=== PATIENT | female | born 1995 | race Caucasian/White ===

== ENCOUNTER 2017-02-15 13:07 | Emergency (ER) | payer BC ==
[~2017-02-15] VITALS: Ht 170.2 cm; Wt 74.8 kg
[2017-02-15 13:11] VITALS: TEMP 36.7; Ht 170.2 cm; Wt 74.8 kg
[2017-02-15] MEDS ORDERED: SODIUM CHLORIDE 0.9% 1000ML 1,000 ML IV STA (13:26)
[2017-02-15] MEDS ORDERED: DROS1TAB24 PO (13:40)
[2017-02-15] MEDS ORDERED: VENL150C56 PO (13:40)
--- NOTE | 2017-02-15 13:41 | EMERGENCY ROOM VISIT NOTE ---
History Report prepared by Ralph: Alyce Stein Under the Supervision of: Dr. Ruby Conroy M.D. First contact with patient: 13:23 Chief Complaint: ABDOMINAL PAIN Stated Complaint: RIGHT SIDED ABD. PAIN, BLOOD IN VOMIT History of Present Illness The patient is a 21 year old female who presents to the Emergency Room with complaints of constant right sided abdominal pain beginning a few months prior to arrival. The patient states that last night she had a vomiting episode and found blood in the vomit. She notes this morning she woke up nauseated but has not vomited today. She is constipated. The patient has been under more stress lately. She was recently diagnosed with IBS with constipation. The patient has been following up with her PCP about the pain and has had lab work, urine samples and an ultrasound done. The patient denies chance of , black or tarry stools. Her LNMP was 3 weeks ago. 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 Review of Systems See HPI for pertinent positives & negatives. A total of 10 systems reviewed and were otherwise negative. Past Medical & Surgical Medical Problems: (1) IBS (irritable bowel syndrome) Family History Cancer Hypertension Social History Smoking Status: Former Smoker Alcohol Use: occasionally Marital Status: single Housing Status: lives alone Occupation Status: employed Current/Historical Medications Scheduled Drospirenone-Ethinyl Estradiol (Ivory), 1 TAB PO HS Omeprazole (Prilosec), 20 MG PO DAILY Senna/Docusate Sod (Senokot S), 1 TAB PO BID Venlafaxine Hcl (Effexor Extended Rel), 1 CAP PO HS Physical Exam Vital Signs Date Time Temp Pulse Resp B/P (MAP) Pulse Ox O2 Delivery O2 Flow Rate FiO2 02/15/17 15:10 72 120/70 100 02/15/17 14:04 60 02/15/17 14:02 60 20 120/74 100 Room Air 02/15/17 13:11 36.7 85 20 120/61 100 Room Air Physical Exam Vital signs reviewed. General: Well-appearing female, in no significant distress. HEENT: No scleral icterus, PERRLA, neck supple. Atraumatic. Cardiovascular: Regular rate and rhythm, no extra sounds. Pulmonary: Clear to auscultation bilaterally, normal work of breathing. Abdomen: Soft, nontender, nondistended, positive bowel sounds. Rectal: Stool guaiac negative. Brown stool. Normal external rectal mucosa. Musculoskeletal: Atraumatic, no peripheral edema. Neurologic: Patient awake alert and oriented x 3 Skin: Warm, dry, no rash Medical Decision & Procedures ER Provider Diagnostic Interpretation: X-ray results as stated below per interpretation by me and the radiologist: ABDOMEN 2VIEW W/PA CHEST RTN CLINICAL HISTORY: vomiting blood COMPARISON STUDY: No previous studies for comparison. FINDINGS: The soft tissues, psoas shadows, renal outlines and intestinal gas pattern appear normal. There is no evidence for bowel obstruction. There is no evidence for free intraperitoneal air. No abnormal abdominal calcifications are seen. A frontal view of the chest was performed and is unremarkable. IMPRESSION: Normal study. Electronically signed by: Flaquito Delacruz M.D. 02/15/2017 2:40 PM Dictated Date/Time: 02/15/2017 2:40 PM Laboratory Results 02/15/17 13:55 Red Blood Count 4.40, Mean Corpuscular Volume 85.5, Mean Corpuscular Hemoglobin 28.4, Mean Corpuscular Hemoglobin Concent 33.2, Mean Platelet Volume 9.8, Neutrophils (%) (Auto) 47.4, Lymphocytes (%) (Auto) 38.6, Monocytes (%) (Auto) 11.3, Eosinophils (%) (Auto) 1.5, Basophils (%) (Auto) 1.0, Neutrophils # (Auto ) 2.78, Lymphocytes # (Auto) 2.26, Monocytes # (Auto) 0.66, Eosinophils # (Auto ) 0.09, Basophils # (Auto) 0.06 02/15/17 13:55 Test 02/15/17 13:25 02/15/17 13:55 Urine Color YELLOW Urine Appearance CLEAR (CLEAR) Urine pH 7.0 (4.5-7.5) Urine Specific [place] 1.027 (1.000-1.030) Urine Protein TRACE (NEG) Urine Glucose (UA) NEG (NEG) Urine Ketones TRACE (NEG) Urine Occult Blood NEG (NEG) Urine Nitrite NEG (NEG) Urine Bilirubin NEG (NEG) Urine Urobilinogen NEG (NEG) Urine Leukocyte Esterase NEG (NEG) Urine WBC (Auto) 1-5 /hpf (0-5) Urine RBC (Auto) 0-4 /hpf (0-4) Urine Hyaline Casts (Auto) 1-5 /lpf (0-5) Urine Epithelial Cells (Auto) >30 /lpf (0-5) Urine Bacteria (Auto) NEG (NEG) White Blood Count 5.86 K/uL (4.8-10.8) Red Blood Count 4.40 M/uL (4.2-5.4) Hemoglobin 12.5 g/dL (12.0-16.0) Hematocrit 37.6 % (37-47) Mean Corpuscular Volume 85.5 fL (80-100) Mean Corpuscular Hemoglobin 28.4 pg (25-34) Mean Corpuscular Hemoglobin Concent 33.2 g/dl (32-36) Platelet Count 336 K/uL (130-400) Mean Platelet Volume 9.8 fL (7.4-10.4) Neutrophils (%) (Auto) 47.4 % Lymphocytes (%) (Auto) 38.6 % Monocytes (%) (Auto) 11.3 % Eosinophils (%) (Auto) 1.5 % Basophils (%) (Auto) 1.0 % Neutrophils # (Auto) 2.78 K/uL (1.4-6.5) Lymphocytes # (Auto) 2.26 K/uL (1.2-3.4) Monocytes # (Auto) 0.66 K/uL (0.11-0.59) Eosinophils # (Auto) 0.09 K/uL (0-0.5) Basophils # (Auto) 0.06 K/uL (0-0.2) RDW Standard Deviation 40.4 fL (36.4-46.3) RDW Coefficient of Variation 12.9 % (11.5-14.5) Immature Granulocyte % (Auto) 0.2 % Immature Granulocyte # (Auto) 0.01 K/uL (0.00-0.02) Anion Gap 7.0 mmol/L (3-11) Est Creatinine Clear Calc Drug Dose 84.0 ml/min Estimated GFR () 82.0 Estimated GFR (Non- 70.7 BUN/Creatinine Ratio 11.9 (10-20) Calcium Level 9.4 mg/dl (8.5-10.1) Total Bilirubin 0.3 mg/dl (0.2-1) Direct Bilirubin 0.1 mg/dl (0-0.2) Aspartate Amino Transf (AST/SGOT) 15 U/L (15-37) Alanine Aminotransferase (ALT/SGPT) 22 U/L (12-78) Alkaline Phosphatase 73 U/L (45-117) Total Protein 7.7 gm/dl (6.4-8.2) Albumin 3.7 gm/dl (3.4-5.0) Lipase 183 U/L (73-393) Laboratory results per my review. Medications Administered Medications (Trade) Dose Ordered Sig/Brittni Route Start Time Stop Time Status Last Admin Dose Admin Sodium Chloride 1,000 ml @ 150 mls/hr [id number] STAT IV 02/15/17 13:26 02/15/17 20:05 02/15/17 13:57 150 MLS/HR ED Course 1326: Sodium Chloride 1,000 ml @ 150 mls/hr IV. 1333: Past medical records reviewed. The patient was evaluated in room B9. A complete history and physical examination was performed. 1426: Upon reevaluation, the patient appeared to have improvement of her symptoms. I discussed findings with her. She verbalized agreement of the treatment plan. She was discharged home. Medical Decision Differential diagnosis: Etiologies such as diverticulosis, AVM, coagulopathy, colitis, inflammatory bowel disease, malignancy, Lissy-Gibson tear, esophagitis, peptic ulcer disease , variceal bleed, gastritis, epistaxis, fissure, hemorrhoids, as well as others were entertained. Medication Reconciliation: I attest that I have personally reviewed the patient' s current medication list. Blood Pressure Screening: Patient was found to have normal blood pressure on screening and does not require follow-up. This patient was evaluated and appeared to be in no significant distress. Physical examination is fairly benign. Stool guaiac is negative. Laboratory work reveals a stable H&H. She was hydrated with normal saline solution. I suspect the bread vomit today is secondary to a small Lissy-Gibson tear after her initial vomiting episode. She does not appear to have any further vomiting or bleeding at this time. Abdominal x-ray series reveals some formed stool in the colon and rectum. She states she has had issues with constipation recently. She was advised to increase the fiber and water in her diet. She will start senna/Colace 1 tablet twice a day. Patient was placed on Prilosec 20 mg daily. She will follow-up with her primary care physician for possible gastroenterology referral. Patient likely should have upper and lower endoscopy. She and her mother aware of the findings and plan. She will return to the ER for worsening of symptoms or any medical concerns. Impression Primary Impression: Constipation Additional Impression: Lissy-Gibson tear Scribe Attestation The scribe's documentation has been prepared under my direction and personally reviewed by me in its entirety. I confirm that the note above accurately reflects all work, treatment, procedures, and medical decision making performed by me. Departure Information Dispostion Home / Self-Care Prescriptions Omeprazole (PRILOSEC) 20 Mg Capcr 20 MG PO DAILY, #30 CAP Prov: Ruby Conroy M.D. 02/15/17 Senna/Docusate Sod (Senokot S) 1 Tab Tab 1 TAB PO BID for Constipation, #60 TAB Prov: Ruby Conroy M.D. 02/15/17 Referrals No Doctor, Assigned (PCP) Forms HOME CARE DOCUMENTATION FORM, IMPORTANT VISIT INFORMATION Patient Instructions My [facility] Additional Instructions Diagnosis: Lissy Gibson tear Prilosec 20 mg daily for 30 days. Avoid alcohol, aspirin and aleve. Senna 2 tabs at bedtime. Drink plenty of clear fluids and increase the fiber in your diet. Follow up with your doctor and consider a GI referral Return to the ED for worsening of symptoms or any medical concerns. Problem Qualifiers
[2017-02-15 14:03] LABS: BASO ABS # 0.06 K/uL (0-0.2); COMPLETE YES; EOS % 1.5 %; HEMATOCRIT 37.6 % (37-47); IG% 0.2 %; LYMPH % 38.6 %; LYMPH ABS # 2.26 K/uL (1.2-3.4); MEAN CELL VOLUME 85.5 fL (80-100); MEAN CORPUSCULAR HEMOGLOBIN 28.4 pg (25-34); MEAN CORPUSCULAR HGB CONC 33.2 g/dl (32-36); MEAN PLATELET VOLUME 9.8 fL (7.4-10.4); MONO % 11.3 %; NEUT % 47.4 %; PLATELET COUNT 336 K/uL (130-400); WHITE BLOOD COUNT 5.86 K/uL (4.8-10.8)
[2017-02-15 14:17] LABS: URINE APPEARANCE CLEAR (CLEAR); URINE BILIRUBIN NEG (NEG); URINE COLOR YELLOW; URINE EPITHELIAL CELL AUTO >30 /lpf (0-5); URINE NITRITE NEG (NEG); URINE SPECIFIC GRAVITY 1.027 (1.000-1.030); UROBILINOGEN NEG (NEG); ZZUR CULT IF INDIC CLEAN CATCH NO
[2017-02-15 14:20] LABS: MANUAL MICROSCOPIC REQUIRED? NO; REVIEW REQ? NO
[2017-02-15 14:24] LABS: BUN/CREATININE RATIO 11.9 (10-20); CREATININE 1.1 mg/dl (0.60-1.20); POTASSIUM 3.4 mmol/L (3.5-5.1)
[2017-02-15 14:32] LABS: CALCIUM 9.4 mg/dl (8.5-10.1)
--- NOTE | 2017-02-15 14:41 | DIAGNOSTIC IMAGING REPORT ---
ABDOMEN 2VIEW W/PA CHEST RTN CLINICAL HISTORY: vomiting blood COMPARISON STUDY: No previous studies for comparison. FINDINGS: The soft tissues, psoas shadows, renal outlines and intestinal gas pattern appear normal. There is no evidence for bowel obstruction. There is no evidence for free intraperitoneal air. No abnormal abdominal calcifications are seen. A frontal view of the chest was performed and is unremarkable. IMPRESSION: Normal study. Electronically signed by: Flaquito Delacruz M.D. 02/15/2017 2:40 PM Dictated Date/Time: 02/15/2017 2:40 PM
[2017-02-15] MEDS ORDERED: PRLSR20 PO (14:44)
[2017-02-15] MEDS ORDERED: SENN-65 PO (14:44)
[2017-02-15 15:10] VITALS: BP 120/70; PULSE 72; O2SAT 100
== END 2017-02-15 15:12 | disposition home or self-care (01) ==
LOC: C.EDB 13:10
DX: K59.00 Constipation, unspecified (principal); K22.6 Gastro-esophageal laceration-hemorrhage syndrome; K58.1 Irritable bowel syndrome with constipation; Z87.891 Personal history of nicotine dependence; Z82.49 Family history of ischemic heart disease and other diseases of the circulatory system